=== PATIENT | female | born 1940 | race Caucasian/White ===

== ENCOUNTER 2020-07-30 06:47 | Day surgery (SDC) | payer MEDICAID, MEDICARE ==
[~2020-07-30 06:47] MED LIST: Lactated Ringers 1,000 ML IV SCH
[2020-07-30] MEDS ORDERED: ceFAZolin 1 GM Vial IV ONE (08:20)
[2020-07-30] MEDS ORDERED: Ondansetron 4 MG/2 ML SDV IVPUSH ONE (08:20)
[2020-07-30] MEDS ORDERED: Midazolam 1 MG/ML 2 ML SDV IV ONE (08:20)
[2020-07-30] MEDS ORDERED: Ketorolac 30 MG/ML SDV IVPUSH ONE (08:20)
[2020-07-30] MEDS ORDERED: ePHEDrine 50 MG/ML SDV IV ONE (08:20)
[2020-07-30] MEDS ORDERED: fentaNYL 100 MCG/2 ML SDV IV ONE (08:20)
[2020-07-30] MEDS ORDERED: Propofol 200 MG/20 ML SDV IV ONE (08:20)
--- NOTE | 2020-07-30 08:27 | PCM.PN ---
- General Info Date of Service: 07/30/20 - Review of Systems Systems Review Comment:: 79 y/o female with left breast CA here for left mastectomy and left axillary node sentinal biopsy. Proposed procedure again reviewed with the patient and she agrees to proceed. 1.3 mCu of Tch 99 injected into left breast. Site confirmed with patient and marked. She agrees to proceed accepting risks. Her recent H and P is reviewed and no significant changes are noted. - Patient Data Vitals - Most Recent: Last Vital Signs Temp 98.2 F 07/30/20 07:18 Pulse 97 07/30/20 07:18 Resp 18 07/30/20 07:18 BP 138/74 07/30/20 07:18 Pulse Ox 97 07/30/20 07:18 Weight - Most Recent: 145 lb 1.027 oz Lab Results Last 24 Hours: Laboratory Results - last 24 hr 07/30/20 Range/Units 07:41 POC Glucose 158 H (74-100) mg/dL Med Orders - Current: Current Medications Lactated Ringer's (Ringers, Lactated) 1,000 mls @ 125 mls/hr IV ASDIRECTED [facility] Last Admin: 07/30/20 07:33 Dose: 125 mls/hr Documented by: Sodium Chloride (Saline Flush) 10 ml FLUSH ASDIRECTED PRN PRN Reason: Keep Vein Open Sepsis Event Note - Focused Exam Vital Signs: Vital Signs Temp Pulse Resp BP Pulse Ox 07/30/20 07:18 98.2 F 97 18 138/74 97 - Problem List Review Problem List Initiated/Reviewed/Updated: Yes - My Orders Last 24 Hours: My Active Orders 07/29/20 11:54 Resuscitation Status Routine 07/29/20 Dinner Nothing Per Oral Diet [DIET] 07/30/20 06:45 Patient Status [ADT] Routine Blood Glucose Check, Bedside [RC] ONETIME Patient to Empty Bladder [RC] ASDIRECTED RT Incentive Spirometry [RC] ASDIRECTED Verify Patient Consent Obtain [RC] ASDIRECTED Lactated Ringers [Ringers, Lactated] 1,000 ml IV ASDIRECTED Sodium Chloride 0.9% [Saline Flush] 10 ml FLUSH ASDIRECTED PRN Peripheral IV Insertion Adult [OM.PC] Routine Sequential Compression Device [OM.PC] Routine 07/30/20 08:00 Tumor Local Limited [NM] Routine - Assessment Assessment:: Left Breast Ca - Plan Plan:: Left mastectomy and left axillary sentinel node biopsy.
[2020-07-30] MEDS ORDERED: Isosulfan Blue 5 ML SDV SUBCUT ONE (08:37)
[2020-07-30] MEDS ORDERED: Morphine 2 MG/ML SYRINGE IVPUSH PRN (09:58)
[2020-07-30] MEDS ORDERED: Acetaminophen/oxyCODONE 325-5 MG Tab PO PRN (09:58)
[2020-07-30] MEDS ORDERED: Ondansetron 4 MG/2 ML SDV IVPUSH PRN (09:58)
--- NOTE | 2020-07-30 09:58 | PCM.OPNOTE ---
- General Post-Op/Procedure Note Date of Surgery/Procedure: 07/30/20 Operative Procedure(s): Left Mastectomy with Left Axillary [place] Lymph Node Biopsy Findings: Normal appearing left axillary nodes and no gross evidence of breast mass or chest wall invasion Pre Op Diagnosis: Ca Left Breast Post-Op Diagnosis: Same Anesthesia Technique: General LMA Primary Surgeon: Lewis Grimes Electronic Calibration Technician: Reza Santa Reason Electronic Calibration Technician Was Necessary: Assist in dissection and exposure and improve efficiency Pathology: Left breast and left axillary nodes EBL in mLs: 50 Surgical Drain/Tube Type: Thomas Crabtree Drain Complications: None Condition: Good
[2020-07-30] MEDS ORDERED: ceFAZolin 1 GM Vial IVPUSH SCH (10:00)
[2020-07-30] MEDS ORDERED: ceFAZolin 1 GM in Sodium Chloride 0.9% 50 ML IV SCH (10:00)
[2020-07-30] MEDS ORDERED: traMADol 50 MG Tab PO PRN (10:01)
[2020-07-30] MEDS ORDERED: Acetaminophen 1,000 MG in Premix Bag 1 BAG IV ONE (10:39)
--- NOTE | 2020-07-30 11:30 | OR ---
DATE OF OPERATION: 07/30/2020 SURGEON: Lewis Grimes MD INVESTMENT FUND MANAGER: Reza Santa MD. Lettuce Cutter necessary to assist in dissection and exposure and improve efficiency. PREOPERATIVE DIAGNOSIS: Carcinoma of the left breast. POSTOPERATIVE DIAGNOSIS: Carcinoma of the left breast. OPERATION PERFORMED: Left mastectomy and left axillary sentinel node biopsy. INDICATIONS FOR SURGERY: This 79-year-old female was recently found to have a carcinoma which developed in her left breast. She comes today for definitive surgical management of this. FINDINGS: The breast tissue appeared normal at the level of dissection. No indication of skin or chest wall invasion was identified. Axillary nodes were normal in appearance. PROCEDURE IN DETAIL: After 1.3 millicuries of technetium-99 had been injected subdermally into the left breast, the patient was taken to the operating room and given general LMA anesthesia. 4 mL of isosulfan blue was injected into the breast near the areola and then the left breast was sterilely prepped and draped. The site of the proposed mastectomy incision was marked on the skin and the superior incision was made and superior flap raised with electrocautery. Dissection proceeded into the left axillary space where using combination of identifying blue coursing through the lymphatics as well as the radioactivity, a total of 4 axillary nodes with significant activity were identified. Each of these were removed with cautery dissection and 10-second count for these 4 nodes is 13,926, 7,964, 2,281, and 524. Good hemostasis was assured in the axilla with the use of cautery and 0 Vicryl ties. After this has been completed, evaluation of the axilla did not reveal any other areas of significant radioactive uptake. The inferior mastectomy incision was then made and inferior flap raised with cautery. The breast was dissected off the underlying pectoralis major muscle with cautery dissection including the fascia with the specimen. The breast was removed and submitted as specimen. Full hemostasis of the operative region assured with the use of electrocautery and Vicryl ties, and when good hemostasis had been assured, the wound was copiously irrigated. A flat Thomas-Crabtree drain was placed through a separate stab wound incision and the subcutaneous tissue along the skin edges was approximated with interrupted 3- 0 Vicryl. The Thomas-Crabtree drain was secured with a silk suture and connected to bulb suction. Skin aristeo were used to approximate the skin edges. A sterile dressing was placed. The patient was then awakened, extubated, and taken from the operating room in satisfactory condition. ESTIMATED BLOOD LOSS: 50 mL. COMPLICATIONS: None. PROGNOSIS: Good. /[id number] SHERYL/MIGUELITOL
[2020-07-30] MEDS: Lactated Ringers 1,000 ML IV SCH ×2 (11:41→21:02)
[2020-07-30] MEDS: ceFAZolin 1 GM Vial IVPUSH SCH ×2 (15:43→23:45)
--- NOTE | 2020-07-30 18:21 | PCM.SURGPN ---
- General Info Date of Service: 07/30/20 Date of Surgery/Procedure: 07/30/20 POD#: 0 Post-Op Diagnosis: Ca Left Breast - Review of Systems General: Denies: Fever, Weakness Pulmonary: Denies: Shortness of Breath Cardiovascular: Denies: Chest Pain Systems Review Comment:: Occasional sharp pains at surgical site but comfortable. - Patient Data Vitals - Most Recent: Last Vital Signs Temp 97.8 F 07/30/20 11:15 Pulse 65 07/30/20 16:15 Resp 14 07/30/20 16:15 BP 142/64 H 07/30/20 16:15 Pulse Ox 99 07/30/20 16:15 Weight - Most Recent: 145 lb 1.027 oz I&O - Last 24 Hours: Intake & Output 07/30/20 07/30/20 07/30/20 06:59 14:59 22:59 Intake Total 640 Output Total 745 Balance -105 Lab Results Last 24 Hrs: Laboratory Results - last 24 hr 07/30/20 Range/Units 07:41 POC Glucose 158 H (74-100) mg/dL Med Orders - Current: Current Medications Amlodipine Besylate (Norvasc) 5 mg PO DAILY [facility] Cefazolin Sodium (Ancef) 1 gm IVPUSH Q8H [facility] Last Admin: 07/30/20 15:43 Dose: 1 gm Documented by: Escitalopram Oxalate (Lexapro) 20 mg PO DAILY [facility] Lactated Ringer's (Ringers, Lactated) 1,000 mls @ 125 mls/hr IV ASDIRECTED [facility] Last Admin: 07/30/20 07:33 Dose: 125 mls/hr Documented by: Lactated Ringer's (Ringers, Lactated) 1,000 mls @ 100 mls/hr IV ASDIRECTED [facility] Last Admin: 07/30/20 11:41 Dose: 100 mls/hr Documented by: Levothyroxine Sodium (Synthroid) 100 mcg PO DAILY@0600 [facility] Losartan Potassium (Cozaar) 100 mg PO DAILY [facility] Metformin HCl (Glucophage) 500 mg PO DAILY [facility] Metoprolol Tartrate (Lopressor) 25 mg PO BID [facility] Morphine Sulfate (Morphine) 2 mg IVPUSH Q1H PRN PRN Reason: Pain (severe 7-10) Ondansetron HCl (Zofran) 4 mg IVPUSH Q6H PRN PRN Reason: Nausea/Vomiting Oxycodone/Acetaminophen (Percocet 325-5 Mg) 1 tab PO Q4H PRN PRN Reason: Pain (mild 1-3) Sodium Chloride (Saline Flush) 10 ml FLUSH ASDIRECTED PRN PRN Reason: Keep Vein Open Tramadol HCl (Ultram) 50 mg PO DAILY PRN PRN Reason: Pain Last Admin: 07/30/20 15:51 Dose: 50 mg Documented by: Discontinued Medications Acetaminophen 1,000 mg/ Premix 100 mls @ 400 mls/hr IV NOW ONE Stop: 07/30/20 10:53 Last Admin: 07/30/20 11:02 Dose: 400 mls/hr Documented by: Isosulfan Blue (Lymphazurin 1%) 10 ml SUBCUT .STK-MED ONE Stop: 07/30/20 08:38 Last Admin: 07/30/20 08:37 Dose: 10 ml Documented by: - Exam Wound/Incisions: Dressing Dry and Intact, Other (ILEANA bloody with moderate drainage) General: Alert, Oriented Lungs: Normal Respiratory Effort Sepsis Event Note - Evaluation Sepsis Screening Result: No Definite Risk - Focused Exam Vital Signs: Vital Signs Temp Pulse Resp BP Pulse Ox Pulse Ox 07/30/20 16:15 65 14 142/64 H 99 07/30/20 14:30 95 14 102/57 L 97 07/30/20 13:30 71 16 126/63 95 07/30/20 12:58 78 14 126/66 97 07/30/20 12:30 79 14 126/66 97 07/30/20 12:00 90 18 143/81 H 97 07/30/20 11:45 76 16 140/66 94 L 07/30/20 11:30 75 16 119/66 95 07/30/20 11:15 97.8 F 75 16 128/68 96 96 07/30/20 11:04 68 15 128/68 97 07/30/20 10:54 67 11 L 138/63 99 07/30/20 10:48 54 L 12 143/63 H 100 07/30/20 10:18 54 L 11 L 145/61 H 95 07/30/20 10:08 76 14 144/79 H 92 L 07/30/20 10:04 79 15 152/77 H 99 07/30/20 09:55 97.5 F 78 14 153/82 H 99 07/30/20 07:18 98.2 F 97 18 138/74 97 - Problem List Review Problem List Initiated/Reviewed/Updated: Yes - My Orders Last 24 Hours: Active Orders 24 hr Category Date Time Status Patient Status [ADT] Routine ADT 07/30/20 06:45 Active Patient Status [ADT] Routine ADT 07/30/20 09:58 Active Ambulate [RC] ASDIRECTED Care 07/30/20 09:58 Active Antiembolic Devices [RC] .Routine Care 07/30/20 10:01 Active Blood Glucose Check, Bedside [RC] ONETIME Care 07/30/20 06:45 Active Intake and Output [RC] QSHIFT Care 07/30/20 09:59 Active Oxygen Therapy [RC] PRN Care 07/30/20 09:58 Active Patient to Empty Bladder [RC] ASDIRECTED Care 07/30/20 06:45 Active RT Incentive Spirometry [RC] Q1HWA Care 07/30/20 09:58 Active VTE/DVT Education [RC] Click to Edit Care 07/30/20 10:01 Active Verify Patient Consent Obtain [RC] ASDIRECTED Care 07/30/20 06:45 Active Vital Signs [RC] PER UNIT ROUTINE Care 07/30/20 09:58 Active Full Liquid Diet [DIET] Diet 07/30/20 Lunch Ordered Tumor Local Limited [NM] Routine Exams 07/30/20 09:38 Taken Acetaminophen/oxyCODONE [Percocet 325-5 MG] Med 07/30/20 09:58 Active 1 tab PO Q4H PRN Escitalopram [Lexapro] Med 07/31/20 09:00 Active 20 mg PO DAILY Lactated Ringers [Ringers, Lactated] 1,000 ml Med 07/30/20 06:45 Active IV ASDIRECTED Lactated Ringers [Ringers, Lactated] 1,000 ml Med 07/30/20 10:00 Active IV ASDIRECTED Levothyroxine [Synthroid] Med 07/31/20 06:00 Active 100 mcg PO DAILY@0600 Losartan [Cozaar] Med 07/31/20 09:00 Active 100 mg PO DAILY Metoprolol Tartrate [Lopressor] Med 07/30/20 21:00 Active 25 mg PO BID Morphine Med 07/30/20 09:58 Active 2 mg IVPUSH Q1H PRN Ondansetron [Zofran] Med 07/30/20 09:58 Active 4 mg IVPUSH Q6H PRN Sodium Chloride 0.9% [Saline Flush] Med 07/30/20 06:45 Active 10 ml FLUSH ASDIRECTED PRN amLODIPine [Norvasc] Med 07/31/20 09:00 Active 5 mg PO DAILY ceFAZolin [Ancef] Med 07/30/20 16:00 Active 1 gm IVPUSH Q8H metFORMIN [Glucophage] Med 07/31/20 09:00 Active 500 mg PO DAILY traMADol [Ultram] Med 07/30/20 10:01 Active 50 mg PO DAILY PRN DVT/VTE Prophylaxis Reflex [OM.PC] Per Unit Routine Oth 07/30/20 10:01 Ordered Peripheral IV Insertion Adult [OM.PC] Routine Oth 07/30/20 06:45 Ordered Sequential Compression Device [OM.PC] Routine Oth 07/30/20 06:45 Ordered Medication Orders Amlodipine Besylate (Norvasc) 5 mg PO DAILY [facility] Cefazolin Sodium (Ancef) 1 gm IVPUSH Q8H [facility] Last Admin: 07/30/20 15:43 Dose: 1 gm Documented by: ESEQUIEL Escitalopram Oxalate (Lexapro) 20 mg PO DAILY [facility] Lactated Ringer's (Ringers, Lactated) 1,000 mls @ 125 mls/hr IV ASDIRECTED [facility] Last Admin: 07/30/20 07:33 Dose: 125 mls/hr Documented by: BINH Lactated Ringer's (Ringers, Lactated) 1,000 mls @ 100 mls/hr IV ASDIRECTED [facility] Last Admin: 07/30/20 11:41 Dose: 100 mls/hr Documented by: ESEQUIEL Levothyroxine Sodium (Synthroid) 100 mcg PO DAILY@0600 [facility] Losartan Potassium (Cozaar) 100 mg PO DAILY [facility] Metformin HCl (Glucophage) 500 mg PO DAILY [facility] Metoprolol Tartrate (Lopressor) 25 mg PO BID [facility] Morphine Sulfate (Morphine) 2 mg IVPUSH Q1H PRN PRN Reason: Pain (severe 7-10) Ondansetron HCl (Zofran) 4 mg IVPUSH Q6H PRN PRN Reason: Nausea/Vomiting Oxycodone/Acetaminophen (Percocet 325-5 Mg) 1 tab PO Q4H PRN PRN Reason: Pain (mild 1-3) Sodium Chloride (Saline Flush) 10 ml FLUSH ASDIRECTED PRN PRN Reason: Keep Vein Open Tramadol HCl (Ultram) 50 mg PO DAILY PRN PRN Reason: Pain Last Admin: 07/30/20 15:51 Dose: 50 mg Documented by: ESEQUIEL - Assessment Assessment (Free Text/Narrative):: Post op mastectomy - Plan Plan (Free Text/Narrative):: Will observe overnight and check Hgb in am
[2020-07-30] MEDS: Metoprolol Tartrate 25 MG Tab *PTOM PO SCH (20:03)
[2020-07-31] MEDS: Sodium Chloride 0.9% 10 ML Syringe FLUSH PRN ×2 (00:08→08:38)
[2020-07-31] MEDS ORDERED: Levothyroxine 100 MCG Tab *PTOM PO SCH (06:00)
[2020-07-31] MEDS: Lactated Ringers 1,000 ML IV SCH (06:38)
--- NOTE | 2020-07-31 07:26 | PCM.SURGPN ---
- General Info Date of Service: 07/31/20 Date of Surgery/Procedure: 07/30/20 POD#: 1 Post-Op Diagnosis: Ca Left Breast Functional Status: Reports: Pain Controlled (only mild discomfort, no more sharp pains) - Review of Systems Pulmonary: Reports: No Symptoms Gastrointestinal: Reports: No Symptoms Musculoskeletal: Denies: Arm Pain - Patient Data Vitals - Most Recent: Last Vital Signs Temp 98.2 F 07/31/20 04:30 Pulse 75 07/31/20 04:30 Resp 16 07/31/20 04:30 BP 141/70 H 07/31/20 04:30 Pulse Ox 96 07/31/20 04:30 Weight - Most Recent: 145 lb 1.027 oz I&O - Last 24 Hours: Intake & Output 07/30/20 07/31/20 07/31/20 22:59 06:59 14:59 Intake Total 1544 940 Output Total 1045 1640 Balance 499 -700 Lab Results Last 24 Hrs: Laboratory Results - last 24 hr 07/30/20 07/31/20 Range/Units 07:41 06:20 Hgb 9.6 L (11.5-15.5) g/dL POC Glucose 158 H (74-100) mg/dL Med Orders - Current: Current Medications Amlodipine Besylate (Norvasc) 5 mg PO DAILY [facility] Cefazolin Sodium (Ancef) 1 gm IVPUSH Q8H [facility] Last Admin: 07/30/20 23:45 Dose: 1 gm Documented by: Escitalopram Oxalate (Lexapro) 20 mg PO DAILY [facility] Lactated Ringer's (Ringers, Lactated) 1,000 mls @ 125 mls/hr IV ASDIRECTED [facility] Last Admin: 07/30/20 07:33 Dose: 125 mls/hr Documented by: Lactated Ringer's (Ringers, Lactated) 1,000 mls @ 100 mls/hr IV ASDIRECTED [facility] Last Admin: 07/31/20 06:38 Dose: 100 mls/hr Documented by: Levothyroxine Sodium (Synthroid) 100 mcg PO DAILY@0600 [facility] Last Admin: 07/31/20 05:47 Dose: 100 mcg Documented by: Losartan Potassium (Cozaar) 100 mg PO DAILY [facility] Metformin HCl (Glucophage) 500 mg PO DAILY [facility] Metoprolol Tartrate (Lopressor) 25 mg PO BID [facility] Last Admin: 07/30/20 20:03 Dose: 25 mg Documented by: Morphine Sulfate (Morphine) 2 mg IVPUSH Q1H PRN PRN Reason: Pain (severe 7-10) Ondansetron HCl (Zofran) 4 mg IVPUSH Q6H PRN PRN Reason: Nausea/Vomiting Oxycodone/Acetaminophen (Percocet 325-5 Mg) 1 tab PO Q4H PRN PRN Reason: Pain (mild 1-3) Sodium Chloride (Saline Flush) 10 ml FLUSH ASDIRECTED PRN PRN Reason: Keep Vein Open Last Admin: 07/31/20 00:08 Dose: 10 ml Documented by: Tramadol HCl (Ultram) 50 mg PO DAILY PRN PRN Reason: Pain Last Admin: 07/30/20 15:51 Dose: 50 mg Documented by: Discontinued Medications Acetaminophen 1,000 mg/ Premix 100 mls @ 400 mls/hr IV NOW ONE Stop: 07/30/20 10:53 Last Admin: 07/30/20 11:02 Dose: 400 mls/hr Documented by: Isosulfan Blue (Lymphazurin 1%) 10 ml SUBCUT .STK-MED ONE Stop: 07/30/20 08:38 Last Admin: 07/30/20 08:37 Dose: 10 ml Documented by: - Exam Wound/Incisions: Healing Well, Drainage (minimal), Other (ILEANA drainage has slowed significantly and drainage appears much thinner this AM). No: Erythema (skin edges healthy and well opposed) General: Alert, Oriented Lungs: Normal Respiratory Effort Extremities: Other (left arm has normal color and no swelling) Sepsis Event Note - Evaluation Sepsis Screening Result: No Definite Risk - Focused Exam Vital Signs: Vital Signs Temp Pulse Pulse Resp BP BP Pulse Ox 07/31/20 04:30 98.2 F 75 16 141/70 H 96 07/31/20 01:20 97.9 F 74 14 143/74 H 97 07/30/20 20:03 73 119/68 07/30/20 20:00 98.2 F 73 16 119/68 98 - Problem List Review Problem List Initiated/Reviewed/Updated: Yes - My Orders Last 24 Hours: Active Orders 24 hr Category Date Time Status Patient Status [ADT] Routine ADT 07/30/20 06:45 Active Patient Status [ADT] Routine ADT 07/30/20 09:58 Active Ambulate [RC] ASDIRECTED Care 07/30/20 09:58 Active Antiembolic Devices [RC] .Routine Care 07/30/20 10:01 Active Intake and Output [RC] ,, Care 07/30/20 09:59 Active Oxygen Therapy [RC] PRN Care 07/30/20 09:58 Active Patient to Empty Bladder [RC] ASDIRECTED Care 07/30/20 06:45 Active RT Incentive Spirometry [RC] Q1HWA Care 07/30/20 09:58 Active VTE/DVT Education [RC] Click to Edit Care 07/30/20 10:01 Active Verify Patient Consent Obtain [RC] ASDIRECTED Care 07/30/20 06:45 Active Vital Signs [RC] PER UNIT ROUTINE Care 07/30/20 09:58 Active Full Liquid Diet [DIET] Diet 07/30/20 Lunch Ordered Tumor Local Limited [NM] Routine Exams 07/30/20 09:38 Taken Acetaminophen/oxyCODONE [Percocet 325-5 MG] Med 07/30/20 09:58 Active 1 tab PO Q4H PRN Escitalopram [Lexapro] Med 07/31/20 09:00 Active 20 mg PO DAILY Lactated Ringers [Ringers, Lactated] 1,000 ml Med 07/30/20 06:45 Active IV ASDIRECTED Lactated Ringers [Ringers, Lactated] 1,000 ml Med 07/30/20 10:00 Active IV ASDIRECTED Levothyroxine [Synthroid] Med 07/31/20 06:00 Active 100 mcg PO DAILY@0600 Losartan [Cozaar] Med 07/31/20 09:00 Active 100 mg PO DAILY Metoprolol Tartrate [Lopressor] Med 07/30/20 21:00 Active 25 mg PO BID Morphine Med 07/30/20 09:58 Active 2 mg IVPUSH Q1H PRN Ondansetron [Zofran] Med 07/30/20 09:58 Active 4 mg IVPUSH Q6H PRN Sodium Chloride 0.9% [Saline Flush] Med 07/30/20 06:45 Active 10 ml FLUSH ASDIRECTED PRN amLODIPine [Norvasc] Med 07/31/20 09:00 Active 5 mg PO DAILY ceFAZolin [Ancef] Med 07/30/20 16:00 Active 1 gm IVPUSH Q8H metFORMIN [Glucophage] Med 07/31/20 09:00 Active 500 mg PO DAILY traMADol [Ultram] Med 07/30/20 10:01 Active 50 mg PO DAILY PRN DVT/VTE Prophylaxis Reflex [OM.PC] Per Unit Routine Oth 07/30/20 10:01 Ordered Peripheral IV Insertion Adult [OM.PC] Routine Oth 07/30/20 06:45 Ordered Sequential Compression Device [OM.PC] Routine Oth 07/30/20 06:45 Ordered Medication Orders Amlodipine Besylate (Norvasc) 5 mg PO DAILY [facility] Cefazolin Sodium (Ancef) 1 gm IVPUSH Q8H [facility] Last Admin: 07/30/20 23:45 Dose: 1 gm Documented by: Admin: 07/30/20 15:43 Dose: 1 gm Documented by: ESEQUIEL Escitalopram Oxalate (Lexapro) 20 mg PO DAILY [facility] Lactated Ringer's (Ringers, Lactated) 1,000 mls @ 125 mls/hr IV ASDIRECTED [facility] Last Admin: 07/30/20 07:33 Dose: 125 mls/hr Documented by: BINH Lactated Ringer's (Ringers, Lactated) 1,000 mls @ 100 mls/hr IV ASDIRECTED [facility] Last Admin: 07/31/20 06:38 Dose: 100 mls/hr Documented by: Infusion: 07/31/20 06:38 Dose: 100 mls/hr Documented by: Admin: 07/30/20 21:02 Dose: 100 mls/hr Documented by: Infusion: 07/30/20 21:02 Dose: 100 mls/hr Documented by: Admin: 07/30/20 11:41 Dose: 100 mls/hr Documented by: ESEQUIEL Levothyroxine Sodium (Synthroid) 100 mcg PO DAILY@0600 [facility] Last Admin: 07/31/20 05:47 Dose: 100 mcg Documented by: MELBA Losartan Potassium (Cozaar) 100 mg PO DAILY [facility] Metformin HCl (Glucophage) 500 mg PO DAILY [facility] Metoprolol Tartrate (Lopressor) 25 mg PO BID [facility] Last Admin: 07/30/20 20:03 Dose: 25 mg Documented by: MELBA Morphine Sulfate (Morphine) 2 mg IVPUSH Q1H PRN PRN Reason: Pain (severe 7-10) Ondansetron HCl (Zofran) 4 mg IVPUSH Q6H PRN PRN Reason: Nausea/Vomiting Oxycodone/Acetaminophen (Percocet 325-5 Mg) 1 tab PO Q4H PRN PRN Reason: Pain (mild 1-3) Sodium Chloride (Saline Flush) 10 ml FLUSH ASDIRECTED PRN PRN Reason: Keep Vein Open Last Admin: 07/31/20 00:08 Dose: 10 ml Documented by: DEAN Tramadol HCl (Ultram) 50 mg PO DAILY PRN PRN Reason: Pain Last Admin: 07/30/20 15:51 Dose: 50 mg Documented by: ESEQUIEL - Assessment Assessment (Free Text/Narrative):: POD#1 Left mastectomy - doing well Hgb decreased slightly today - Plan Plan (Free Text/Narrative):: Discharge with ILEANA drain in place follow up in clinic in 2 days patient will take own supply of tramadol for pain patient to take Fe BID for mild anemia
[2020-07-31] MEDS: ceFAZolin 1 GM Vial IVPUSH SCH (08:38)
[2020-07-31] MEDS ORDERED: metFORMIN 500 MG Tab *PTOM PO SCH (09:00)
[2020-07-31] MEDS ORDERED: Losartan 100 MG Tab *PTOM PO SCH (09:00)
[2020-07-31] MEDS ORDERED: amLODIPine 5 MG Tab *PTOM PO SCH (09:00)
[2020-07-31] MEDS ORDERED: Escitalopram 20 MG Tab *PTOM PO SCH (09:00)
[2020-07-31 10:26] VITALS: BP 136/70; PULSE 78
[2020-07-31] MEDS: Metoprolol Tartrate 25 MG Tab *PTOM PO SCH (10:48)
== END 2020-07-31 08:45 | disposition home or self-care (01) ==
LOC: FB.SDS 06:47 → FB.MS 09:15 → FB.SDS 07-31 08:45
PROVIDERS: ATTEND Surgery
DX: C50.912 Malignant neoplasm of unspecified site of left female breast (principal); E11.9 Type 2 diabetes mellitus without complications; I10 Essential (primary) hypertension; E78.00 Pure hypercholesterolemia, unspecified; M85.80 Other specified disorders of bone density and structure, unspecified site; E03.9 Hypothyroidism, unspecified; Z85.3 Personal history of malignant neoplasm of breast; Z98.890 Other specified postprocedural states
CPT/HCPCS: 00400-QZ; 36415; 78800; 82962; 85018; 88307; 88342; 88360; 88377; 94150; A9270-GY; A9541; J0131; J0690; J1885; J2250; J2405; J2704; J3010; J7120; Q9968

== ENCOUNTER 2024-05-06 19:21 | Emergency (ER) | payer MEDICARE, MEDICAID ==
[2024-05-06] MEDS ORDERED: Ondansetron 4 MG Tab.DIS PO ONE (19:22)
[2024-05-06] MEDS: Sodium Chloride 0.9% 10 ML Syringe FLUSH PRN (19:58)
[2024-05-06] MEDS: Ondansetron 4 MG/2 ML SDV IVPUSH ONE (19:58)
[2024-05-06 20:39] LABS: BASOPHILS PERCENT AUTO 0.6 % (0.2-1.5); BLOOD UREA NITROGEN,BUN 15 mg/dL (7-18); CALCIUM 9.5 mg/dL (8.6-10.2); CARBON DIOXIDE,CO2 27 mmol/L (21-32); CHLORIDE,CL 102 mmol/L (100-110); EOSINOPHILS PERCENT AUTO 0.3 % (0.6-8.1); ESTIMATED GFR 55 mL/min (>60); GLUCOSE RANDOM 185 mg/dL (80-116); HEMATOCRIT 34.7 % (34.2-48.2); HEMOGLOBIN 11.7 g/dL (11.4-15.5); LYMPHOCYTES ABSOLUTE AUTO 0.5 x10-3/uL (1.0-4.4); LYMPHOCYTES PERCENT AUTO 9.1 % (18.4-52.1); MEAN CORPUSCULAR HEMOGLOBIN 29.4 pg (23.9-33.9); MEAN CORPUSCULAR HGB CONC 33.7 g/dL (31.9-34.8); MEAN CORPUSCULAR VOLUME 87.2 fL (76.7-100.5); MEAN PLATELET VOLUME 9.6 fL (7.1-12.4); MONOCYTES ABSOLUTE AUTO 0.6 x10-3/uL (0.3-1.0); MONOCYTES PERCENT AUTO 11.4 % (4.4-15.7); NEUTROPHILS ABSOLUTE AUTO 4.4 x10-3/uL (1.5-6.3); NEUTROPHILS PERCENT AUTO 78.6 % (30.8-76.2); PLATELET COUNT,PLT 156 x10(3)uL (151-488); POTASSIUM,K 3.7 mmol/L (3.5-5.3); RED BLOOD CELL COUNT 3.98 x10(6)uL (3.60-5.20); SODIUM,NA 140 mmol/L (135-145); WHITE BLOOD CELL COUNT,WBC 5.7 x10-3/uL (3.0-10.3)
[2024-05-06 20:47] LABS: TROPONIN I 10.4 pg/mL (4.0-60.3)
[2024-05-06 20:52] LABS: A/G RATIO 1.1; ALANINE AMINOTRANSFERASE,ALT 16 U/L (12-36); ALBUMIN 3.8 g/dL (3.2-4.6); ALKALINE PHOSPHATASE 67 IU/L (56-112); ASPARTATE AMNIOTRANSFERASE,AST 15 IU/L (5-25); BILIRUBIN TOTAL 0.8 mg/dL (0.1-1.3); MAGNESIUM 1.5 mg/dL (1.8-2.5); PROTEIN TOTAL,TP 7.2 g/dL (6.0-8.0)
[2024-05-06 20:54] LABS: C-REACTIVE PROTEIN 5.55 mg/dL (<0.50)
[2024-05-06 22:34] LABS: BILIRUBIN,URINE NEGATIVE (NEGATIVE); GLUCOSE,URINE NORMAL (NORMAL); KETONES,URINE 15 mg/dL (NEGATIVE); LEUKOCYTE ESTERASE,URINE NEGATIVE (NEGATIVE); NITRITE,URINE NEGATIVE (NEGATIVE); OCCULT BLOOD,URINE NEGATIVE (NEGATIVE); PROTEIN,URINE NEGATIVE (NEGATIVE); UROBILINOGEN,URINE NORMAL (NEGATIVE)
[2024-05-06 22:35] LABS: APPEARANCE,URINE CLEAR (CLEAR); BACTERIA,URINE RARE (NS); COLOR,URINE YELLOW (YELLOW); RBC,URINE 0-5 (0-5); SQUAMOUS EPITHELIAL CELLS,UR OCCASIONAL (NS,R,O); WBC,URINE 0-5 (0-5)
[2024-05-06] MEDS: Sodium Chloride 0.9% 1,000 ML IV ONE (23:05)
[2024-05-07 02:04] VITALS: BP 147/77; PULSE 97
== END 2024-05-07 01:00 | disposition home or self-care (01) ==
LOC: FB.ED 19:21
DX: U07.1 COVID-19 (principal); E86.0 Dehydration; E83.42 Hypomagnesemia; R42 Dizziness and giddiness; I10 Essential (primary) hypertension; E78.00 Pure hypercholesterolemia, unspecified; E11.9 Type 2 diabetes mellitus without complications; E03.9 Hypothyroidism, unspecified; Z90.49 Acquired absence of other specified parts of digestive tract; Z90.710 Acquired absence of both cervix and uterus; Z79.899 Other long term (current) drug therapy; Z79.84 Long term (current) use of oral hypoglycemic drugs; Z79.890 Hormone replacement therapy
CPT/HCPCS: 36415; 71046; 80053; 81001; 83735; 84484; 85025; 86140; 93005; 96361; 96374; 99285-25; J2405; J3490; J7030; Q0162; U0002